=== PATIENT | female | born 1985 | race Caucasian/White ===

== ENCOUNTER 2016-06-16 18:01 | Emergency (ER) | payer OTHER ==
[~2016-06-16] VITALS: Ht 172.7 cm; Wt 75.0 kg
[2016-06-16 18:15] VITALS: BP 123/85; PULSE 70; RESP 16; O2SAT 100
[2016-06-16 19:04] LABS: BASOPHILS % (AUTO) 0.4 % (0-3); EOSINOPHILS % (AUTO) 1.7 % (0-5); Mean Corpuscular Hemoglobin 29.3 pg (27.0-35.0); Mean Corpuscular Volume 87.6 fL (81-100); NEUTROPHILS % (AUTO) 65.8 % (40-74); Platelet Count 279 bil/L (150-400)
--- NOTE | 2016-06-16 19:10 | ED.REPORT ---
HPI-Abd Pain F Under 38 Date of Service Jun 16, 2016 ED Provider: Dominique Alvarenga History of Present Illness: went to urgent care sent here for rule out appy. [facility] in [place] is primary care. right lower abd pain since Thursday. decreased appitete. 07/02. positive nausea, no vomiting Nursing Notes Stated Complaint: POSSIBLE APPY,FR/URGENT CARE Chief Complaint: Female Abdominal Pain Nursing Notes Reviewed: Yes Allergies: Coded Allergies: No Known Allergies (Unverified , 06/16/16) General Time Seen by MD: 19:09 Chief Complaint Abdominal pain Hx Obtained From: Patient Sudden in Onset?: No Symptom Duration: Since onset Progression since Onset: Unchanged Severity: Current: Pain level 5 out of 10 Past Medical History Past Medical History Denies: Asthma Past Surgical History Reports: Tonsillectomy Smoking History Current Every Day Smoker (10 cig a week for 1 year) Social History Alcohol Use: Denies alcohol use Drug Use: Denies drug use Other Social History: Occupation lives with , no work or school Ambulatory Status Independent Review of Systems Basic Review of Systems Eyes: Vision NL, No discharge Skin: No bruising, No rash, No itch Psychiatric: Normal thought content Physical Exam Initial Vital Signs Vital Signs (First) Date Time Temp Pulse Resp B/P Pulse Ox O2 Delivery O2 Flow Rate FiO2 06/16/16 18:15 37.3 70 16 123/85 100 Room Air Initial VS: Reviewed, Vital signs normal Head / Eyes: Atraumatic, Normocephalic, PERRL ENT: Mucous membranes moist, Conjunctiva normal, No scleral icterus Neck: Supple, Non-tender, Full range of motion Lymphatic: No lymphadenopathy Extremities: Vascular intact, Neuro intact, No swelling, No tenderness Skin: Warm, Dry, No cyanosis Neurologic: Alert, Oriented, Nonfocal Psychiatric: Mood/affect normal, Behavior normal, Normal thought content General/Constitutional: Awake, Alert, No acute distress, Well appearing, Well developed, Well hydrated Respiratory / Chest: Atraumatic, Breath sounds NL, Breath sounds = bilat, No respiratory distress Cardiovascular: Heart rate NL, Regular rhythm, Heart sounds NL, No gallop Abdomen: Atraumatic, Soft, Non-tender, McBurney's non-tender, No guarding, No rebound, BS normoactive, No distention Back: Atraumatic, Inspection NL, Full range of motion, Painless range of motion Interpretation & Diagnostics Lab Results Interpretation Result Diagram: 06/16/16 1849 06/16/16 1849 Test 06/16/16 18:49 06/16/16 19:09 White Blood Count 7.3th/mm3 (3.8-10.1) Red Blood Count 4.61mil/mm3 (3.90-5.20) Hemoglobin 13.5g/dL (12.0-15.6) Hematocrit 40.4% (35.0-46.0) Mean Corpuscular Volume 87.6fL (81-100) Mean Corpuscular Hemoglobin 29.3pg (27.0-35.0) Mean Corpuscular Hemoglobin Concent 33.4% (32.0-37.0) Red Cell Distribution Width 12.5% (12.3-15.4) Platelet Count 279bil/L (150-400) Neutrophils (%) (Auto) 65.8% (40-74) Lymphocytes (%) (Auto) 25.1% (14-46) Monocytes (%) (Auto) 7.0% (4-12) Eosinophils (%) (Auto) 1.7% (0-5) Basophils (%) (Auto) 0.4% (0-3) Sodium Level 138mEq/L (134-144) Potassium Level 4.5mEq/L (3.5-5.2) Chloride Level 101mEq/L (97-108) Carbon Dioxide Level 25mmol/L (18-29) Blood Urea Nitrogen 16mg/dL (6-20) Creatinine 0.56mg/dL (0.57-1.00) Estimat Glomerular Filtration Rate 180mL/min (>59) Glucose Level 97mg/dL (60-99) Calcium Level 9.9mg/dL (8.5-10.1) Magnesium Level 2.0mg/dL (1.6-2.6) Total Bilirubin 0.2mg/dL (0.0-1.2) Aspartate Amino Transf (AST/SGOT) 16U/L (0-50) Alanine Aminotransferase (ALT/SGPT) 11U/L (0-32) Alkaline Phosphatase 76U/L (25-150) Total Protein 7.5g/dL (6.4-8.4) Albumin 4.8g/dL (3.4-5.0) Lipase 34U/L (13-60) Hold Caputo Top Tube Received (Received) Hold Urine Received (Received) Lab Results Interpretation: uriine is negative CT Abd / Pelvis Interpretation ROCEDURE: CT ABDOMEN AND PELVIS WITH CONTRAST ([id number]) INDICATIONS: right lower quadrant pain TECHNIQUE: After the administration of intravenous contrast, 5 mm thick sections acquired from the diaphragms to the symphysis. 5 mm thick coronal and sagittal reformats were performed. For radiation dose reduction, the following was used: automated exposure control, adjustment of mA and/or kV according to patient size. COMPARISON: None. FINDINGS: Image quality: Excellent. ABDOMEN: Lung bases: There is minimal dependent atelectasis. Heart size is normal. Solid organs: No focal hepatic lesions identified. There is borderline enlargement of the spleen measuring up to 13.4 cm. Gallbladder is nondistended without calcified gallstones. Biliary system is non-dilated. Pancreas enhances normally. No adrenal nodules. Kidneys are normal in size and enhancement, without hydronephrosis. Peritoneum and bowel: Stomach, small bowel, and colon loops are normal in caliber and wall thickness. The appendix is not discretely identified but there are no pericecal inflammatory changes to suggest appendicitis. There is colonic diverticulosis without acute diverticulitis. No free fluid or air. Nodes and vessels: No retroperitoneal or mesenteric adenopathy. Aorta and inferior vena cava are normal in caliber. Miscellaneous: No ventral hernias. PELVIS: Genitourinary: Bladder wall thickness is normal. The uterus and ovaries appear within normal size limits. Miscellaneous: No inguinal hernias or adenopathy. Bones: No suspicious bony lesions. No vertebral body compression fractures. IMPRESSION: 1. No pericecal inflammatory changes to suggest appendicitis. 2. No evidence of hydronephrosis. Dictated by: Terry Slaughter M.D. on 06/16/2016 at 20:04 Approved by: Terry Slaughter M.D. on 06/16/2016 at 20:08 Re-Eval/Medical Decision Med Decision/Clinical Course Med Decision/Clinical Course: 30 year old female presents for evualation of right lower abd pain of 3 days duration. Exam is normal, CT is negative, no sign of appendicitis or kidney stone Discharge & Departure Primary Impression: Abdominal pain Abdominal location: right lower quadrant Qualified Code: R10.31 - Right lower quadrant pain Disposition: Home Patient Instructions: Acute Abdominal Pain (ED) Additional Instructions: Your labs are normal. The urine looks good. The abd CT is normal, it does not identify any cause for your pain. Use ibuprofen 800 mg up to 3 times a day as needed for discomfort. If you feel you need more, you can use the tramadol that you receive monthly. Please follow with primary care Hanny Adams for a recheck later this week. EDSupervising Provider for APC: Lizzette Ortiz MD, Sue ARNP Jun 16, 2016 19:09
[2016-06-16] MEDS ORDERED: 0.9% Sodium Chloride 1,000 ML IV ONE (19:20)
[2016-06-16] MEDS ORDERED: Ondansetron 2 mg/mL 2 mL Inj ONE (19:29)
--- NOTE | 2016-06-16 20:10 | DRSVH ---
PROCEDURE: CT ABDOMEN AND PELVIS WITH CONTRAST ([id number]) INDICATIONS: right lower quadrant pain TECHNIQUE: After the administration of intravenous contrast, 5 mm thick sections acquired from the diaphragms to the symphysis. 5 mm thick coronal and sagittal reformats were performed. For radiation dose reduct ion, the following was used: automated exposure control, adjustment of mA and/or kV according to pat ient size. COMPARISON: None. FINDINGS: Image quality: Excellent. ABDOMEN: Lung bases: There is minimal dependent atelectasis. Heart size is normal. Solid organs: No focal hepatic lesions identified. There is borderline enlargement of the spleen me asuring up to 13.4 cm. Gallbladder is nondistended without calcified gallstones. Biliary system is non-dilated. Pancreas enhances normally. No adrenal nodules. Kidneys are normal in size and enhanc ement, without hydronephrosis. Peritoneum and bowel: Stomach, small bowel, and colon loops are normal in caliber and wall thickness . The appendix is not discretely identified but there are no pericecal inflammatory changes to sugge st appendicitis. There is colonic diverticulosis without acute diverticulitis. No free fluid or air . Nodes and vessels: No retroperitoneal or mesenteric adenopathy. Aorta and inferior vena cava are no rmal in caliber. Miscellaneous: No ventral hernias. PELVIS: Genitourinary: Bladder wall thickness is normal. The uterus and ovaries appear within normal size l imits. Miscellaneous: No inguinal hernias or adenopathy. Bones: No suspicious bony lesions. No vertebral body compression fractures. IMPRESSION: 1. No pericecal inflammatory changes to suggest appendicitis. 2. No evidence of hydronephrosis. Dictated by: Terry Slaughter M.D. on 06/16/2016 at 20:04 Approved by: Terry Slaughter M.D. on 06/16/2016 at 20:08
== END 2016-06-16 20:39 | disposition home or self-care (01) ==
LOC: SED 18:01
DX: R10.31 Right lower quadrant pain (principal); F17.210 Nicotine dependence, cigarettes, uncomplicated
CPT/HCPCS: 36415; 74177; 80053; 81025; 83690; 83735; 85025; 96361; 96374; 99285; J2405; J7030; Q9967